=== PATIENT | female | born 1980 | race Two or more races ===

== ENCOUNTER 2017-11-04 20:03 | Emergency (ER) | payer OTHER ==
[~2017-11-04] VITALS: Ht 157.5 cm; Wt 86.4 kg
[2017-11-04] MEDS ORDERED: EZFE 200200 MG PO (20:09)
[2017-11-04 20:50] LABS: BASOPHILS 0.2 % (0-2); EOSINOPHILS 0.7 % (0-7); HEMATOCRIT 39.7 % (36.0-48.0); HEMOGLOBIN 12.8 g/dL (12-16); IMMATURE GRANULOCYTES 0.2 % (0-5); LYMPHOCYTES 23.3 % (15-50); MCH 29.2 pg (26.0-34.0); MCHC 32.2 g/dL (31.0-37.0); MCV 90.6 fL (80.0-100.0); MEAN PLATELET VOLUME 10.3 fL (7.4-10.4); MONOCYTES 8.6 % (2-11); PLATELET COUNT 351 10x3/uL (130-400); RBC 4.38 10x6/uL (4.00-5.40); RDW 12.3 % (11.5-14.5); WBC 10.7 10x3/uL (4.8-10.8)
[2017-11-04 21:02] LABS: APTT 30.1 SECONDS (22.8-39.4); INR 1.09 (0.85-1.17); PROTIME 13.7 SECONDS (11.6-15.0)
[2017-11-04 21:09] LABS: ALKALINE PHOSPHATASE 58 U/L (46-116); ALT (SGPT) 29 U/L (10-68); CALC OSMOLALITY 277 mosm/kg (275-300); CALCIUM 8.9 mg/dL (8.5-10.1); CARBON DIOXIDE 27.1 mmol/L (21.0-32.0); CHLORIDE - SERUM 106 mmol/L (98-107); CREATININE - SERUM 0.8 mg/dL (0.6-1.3); GLUCOSE 104 mg/dL (74-106); POTASSIUM - SERUM 3.6 mmol/L (3.5-5.1); PROTEIN - SERUM 7.8 g/dL (6.4-8.2); SODIUM 140 mmol/L (136-145); UREA NITROGEN 11 mg/dL (7-18); eGFR NON AFRICAN AMERICAN 86 mL/min (90-120)
[2017-11-04 22:30] VITALS: Ht 157.5 cm; Wt 86.4 kg
[2017-11-05 00:16] VITALS: BP 150/86
== END 2017-11-05 00:17 | disposition home or self-care (01) ==
LOC: D.ER 20:03
PROVIDERS: Emergency Medicine
DX: S82.892A Other fracture of left lower leg, initial encounter for closed fracture (principal); X58.XXXA Exposure to other specified factors, initial encounter; Y93.89 Activity, other specified; Y92.89 Other specified places as the place of occurrence of the external cause